=== PATIENT | female | born 1965 | race African-American/Black ===

== ENCOUNTER → 2020-12-22 12:55 | Outpatient (CLI) | payer OTHER, SELFPAY ==
--- NOTE | ~2020-12-22 | US_ITS ---
EXAMINATION: US pelvic complete w TV DATE: 12/22/2020 13:28 INDICATION: Menorrhagia Comparison:Ultrasound dated 04/11/2018 TECHNIQUE: Multiple transabdominal and endovaginal sonographic images of the pelvis performed. FINDINGS: The uterus measures 11.1 x 6.9 x 7.5 cm. There is a slightly hyperechoic mass at the fundus of uterus measuring 5.7 x 4.8 x 4.3 cm, compatible with uterine fibroid. The endometrial complex maría sures 10 mm. The ovaries are not visualized. There is no free fluid in the pelvis. There are no abnormal masses seen on either side. IMPRESSION: 1. Enlarged fibroid uterus. Otherwise, unremarkable pelvic ultrasound. Reviewed, dictated and finalized at location A.
== END ==
PROVIDERS: Visit Provider Obstetrics & Gynecology
DX: N93.9 Abnormal uterine and vaginal bleeding, unspecified (principal); D25.9 Leiomyoma of uterus, unspecified
CPT/HCPCS: 76830; 76856